=== PATIENT | female | born 2000 | race Caucasian/White ===

== ENCOUNTER 2021-09-09 11:09 | Emergency (ER) | payer MEDICAID ==
--- NOTE | 2021-09-09 12:48 | XRAY ---
Indication: Left lower quadrant pain. 13 weeks gestation. Two-dimensional transabdominal early OB ultrasound performed. Comparison: None Single viable intrauterine . Mean crown-rump length measures 6.55 cm corresponding to 12 weeks 6 days. heart rate 152 BPM. No abnormal retroplacental fluid. Cervical length is 2.6 cm. Left ovary unremarkable. Right ovary not visualized. No suspicious adnexal mass or free fluid. Impression: Single viable intrauterine measuring 12 weeks 6 days. Expected date confinement March 18, 2022. Nothing acute.
--- NOTE | 2021-09-09 12:54 | ERPHSYRPT ---
- History of Present Illness Time Seen by Provider: 09/09/21 12:10 Source: patient Exam Limitations: no limitations Physician History: Patient is a 20-year-old 1 para 0 who presents with some left lower quadrant and left pelvic pain. She is currently 36 weeks gestation with an estimated date of confinement of 03/19/2022. She is scheduled to see Dr. Martinez he who requested she come to the ER today for evaluation. She has had cramping and she has had nausea and vomiting. She has had no vaginal bleeding. She does have a history of a cyst in the left ovary. Which was observed Severity: mild Modifying Factors: Improves With: movement Associated Symptoms: nausea, vomiting, abdominal pain Allergies/Adverse Reactions: latex Allergy (Verified 09/09/21 12:54) Home Medications: Pnv No.95/Ferrous Fum/Folic AC [ Caplet] 1 each PO DAILY 09/09/21 [History] - Review of Systems Constitutional: No Fever, No Chills Eyes: No Symptoms Ears, Nose, & Throat: No Symptoms Respiratory: No Cough, No Dyspnea Cardiac: No Chest Pain, No Edema, No Syncope Abdominal/Gastrointestinal: Abdominal Pain, No Nausea, No Vomiting, No Diarrhea Genitourinary Symptoms: , No Dysuria Musculoskeletal: No Back Pain, No Neck Pain Skin: No Rash Neurological: No Dizziness, No Focal Weakness, No Sensory Changes Psychological: No Symptoms Endocrine: No Symptoms All Other Systems: Reviewed and Negative - Female History Hx Now: Yes - Nursing Vital Signs Nursing Vital Signs: Initial Vital Signs Pulse Rate 80 09/09/21 12:10 Respiratory Rate 20 09/09/21 12:10 Blood Pressure 121/81 09/09/21 12:10 O2 Sat by Pulse Oximetry 99 09/09/21 12:10 Pain Scale Pain Intensity 0 - Physical Exam General Appearance: no apparent distress, alert Eye Exam: PERRL/EOMI, eyes nml inspection Ears, Nose, Throat Exam: normal ENT inspection, TMs normal, pharynx normal, moist mucous membranes Neck Exam: normal inspection, non-tender, supple, full range of motion Respiratory Exam: normal breath sounds, lungs clear, No respiratory distress Cardiovascular Exam: regular rate/rhythm, normal heart sounds, normal peripheral pulses Gastrointestinal/Abdomen Exam: soft, normal bowel sounds, other ( heart tones are positive just above the symphysis), No tenderness, No mass Pelvic Exam: not done Rectal Exam: deferred Back Exam: normal inspection, normal range of motion, No CVA tenderness, No vertebral tenderness Extremity Exam: normal inspection, normal range of motion, pelvis stable Neurologic Exam: alert, oriented x 3, cooperative, normal mood/affect, nml cerebellar function, nml station & gait, sensation nml, No motor deficits Skin Exam: normal color, warm, dry, No rash Lymphatic Exam: No adenopathy SpO2 Interpretation: normal SpO2: 99 O2 Delivery: Room Air - Course Nursing assessment & vital signs reviewed: Yes - Radiology Ultrasound Exam OB Ultrasound: Other (Intrauterine at 12 weeks 6 days no cyst noted no masses and no fluid in the pelvis) Ordered Tests: Active Orders 24 hr Category Date Time Status OB <14 WKS 1ST GESTATION [US] Stat Exams 09/09/21 12:36 Completed AMYLASE Stat Lab 09/09/21 13:10 Completed CBC W DIFF Stat Lab 09/09/21 13:10 Completed CMP Stat Lab 09/09/21 13:10 Completed LIPASE Stat Lab 09/09/21 13:10 Completed UA W/RFX CULTURE Stat Lab 09/09/21 12:57 Completed Lab/Rad Data: Laboratory Result Diagrams 09/09/21 13:10 09/09/21 13:10 Laboratory Results 09/09/21 09/09/21 09/09/21 Range/Units 13:10 13:10 12:57 WBC 8.7 (4.0-10.5) x10^3/uL RBC 4.31 (4.1-5.4) x10^6/uL Hgb 13.7 (12.0-16.0) g/dL Hct 38.2 (35-47) % MCV 88.6 (78-100) fL MCH 31.8 (26-32) pg MCHC 35.9 (32-36) g/dL RDW 11.4 L (11.5-14.0) % Plt Count 247 (150-450) x10^3/uL MPV 9.5 (7.5-11.0) fL Gran % 61.9 (36.0-66.0) % Immature Gran % (Auto) 0.5 H (0.00-0.4) % Nucleat RBC Rel Count 0.0 (0.00-0.1) % Eos # (Auto) 0.08 (0-0.5) x10^3/uL Immature Gran # (Auto) 0.04 H (0.00-0.03) x10^3u/L Absolute Lymphs (auto) 2.43 (1.0-4.6) x10^3/uL Absolute Monos (auto) 0.73 (0.0-1.3) x10^3/uL Absolute Nucleated RBC 0.00 (0.00-0.01) x10^3u/L Lymphocytes % 28.1 (24.0-44.0) % Monocytes % 8.4 (0.0-12.0) % Eosinophils % 0.9 (0.00-5.0) % Basophils % 0.2 (0.0-0.4) % Absolute Granulocytes 5.35 (1.4-6.9) x10^3/uL Basophils # 0.02 (0-0.4) x10^3/uL Sodium 134 L (137-145) mmol/L Potassium 3.6 (3.5-5.1) mmol/L Chloride 106 (98-107) mmol/L Carbon Dioxide 20 L (22-30) mmol/L Anion Gap 12.1 (5-15) MEQ/L BUN 6 L (7-17) mg/dL Creatinine 0.39 L (0.52-1.04) mg/dL Estimated GFR > 60.0 ML/MIN Glucose 67 L (74-106) mg/dL Calcium 9.3 (8.4-10.2) mg/dL Total Bilirubin 0.40 (0.2-1.3) mg/dL AST 22 (14-36) U/L ALT 14 (0-35) U/L Alkaline Phosphatase 56 (38-126) U/L Serum Total Protein 7.3 (6.3-8.2) g/dL Albumin 4.1 (3.5-5.0) g/dL Amylase 92 (30-110) U/L Lipase 71 (23-300) U/L Urinalys Dipstick Clnc MAIN LAB Urine Color YELLOW (YELLOW) Urine Appearance SLIGHTLY CLOUDY (CLEAR) Urine pH 8.5 (5-6) Ur Specific Elbert 1.020 (1.005-1.025) POC Urine Protein Conf NEGATIVE (Negative) Urine Ketones NEGATIVE (NEGATIVE) Urine Nitrite NEGATIVE (NEGATIVE) Urine Bilirubin NEGATIVE (NEGATIVE) Urine Urobilinogen 0.2 (0-1) mg/dL Urine Leukocytes NEGATIVE (NEGATIVE) Urine WBC (Auto) 3-5 (0-5) /HPF Urine RBC (Auto) 0-2 (0-2) /HPF U Epithel Cells (Auto) RARE (FEW) /HPF Urine Bacteria (Auto) FEW (NEGATIVE) /HPF Urine RBC NEGATIVE (0-5) [place]/ul Urine Mucus (Auto) SLIGHT (NEGATIVE) /HPF Ur Culture Indicated? NO Urine Glucose NEGATIVE (NEGATIVE) mg/dL - Progress Progress: unchanged - Departure Departure Disposition: Home Clinical Impression: Hyperemesis of Condition: Stable Critical Care Time: No Referrals: DOCTOR,NO FAMILY [Primary Care Provider] - Follow up/PCP as directed Instructions: Morning Sickness (DC) Prescriptions: Ondansetron ODT 4 MG [Zofran Odt 4 mg] 4 mg PO Q6H PRN PRN #10 tablet PRN Reason: Vomiting
[2021-09-09 13:08] VITALS: BP 120/80; PULSE 76
[2021-09-09 13:15] LABS: Absolute Neutrophil Ct (ANC) 5.35 x10^3/uL (1.4-6.9); Basophil (Absolute #) 0.02 x10^3/uL (0-0.4); Eosinophil % 0.9 % (0.00-5.0); Eosinophil (Absolute #) 0.08 x10^3/uL (0-0.5); Hematocrit 38.2 % (35-47); Hemoglobin 13.7 g/dL (12.0-16.0); Lymphocyte (Absolute #) 2.43 x10^3/uL (1.0-4.6); Lymphocytes % 28.1 % (24.0-44.0); Mean Cell Volume 88.6 fL (78-100); Mean Corpuscular Hemoglobin 31.8 pg (26-32); Mean Corpuscular Hgb Concent. 35.9 g/dL (32-36); Mean Platelet Volume 9.5 fL (7.5-11.0); Monocyte (Absolute #) 0.73 x10^3/uL (0.0-1.3); Monocytes % 8.4 % (0.0-12.0); Neutrophil % 61.9 % (36.0-66.0); Platelet Count 247 x10^3/uL (150-450); Red Blood Count 4.31 x10^6/uL (4.1-5.4); Red Cell Distribution Width 11.4 % (11.5-14.0); White Blood Count 8.7 x10^3/uL (4.0-10.5)
[2021-09-09 13:27] LABS: ALBUMIN 4.1 g/dL (3.5-5.0); ALKALINE PHOSPHATASE 56 U/L (38-126); AMYLASE 92 U/L (30-110); ANION GAP 12.1 MEQ/L (5-15); BLOOD UREA NITROGEN 6 mg/dL (7-17); CHLORIDE 106 mmol/L (98-107); Calcium 9.3 mg/dL (8.4-10.2); Carbon Dioxide 20 mmol/L (22-30); Creatinine 1 0.39 mg/dL (0.52-1.04); EST GLOMERULAR FILTRATION RATE > 60.0 ML/MIN; Glucose 67 mg/dL (74-106); LIPASE 71 U/L (23-300); Potassium 3.6 mmol/L (3.5-5.1); SGOT/AST 22 U/L (14-36); SGPT/ALT 14 U/L (0-35); SODIUM 134 mmol/L (137-145); Total Protein 7.3 g/dL (6.3-8.2)
[2021-09-09 13:28] LABS: Appearance SLIGHTLY CLOUDY (CLEAR); Bilirubin NEGATIVE (NEGATIVE); Glucose NEGATIVE (NEGATIVE); Ketones NEGATIVE (NEGATIVE)
[2021-09-09 13:29] LABS: Dipstick done @ ? MAIN LAB; Nitrite NEGATIVE (NEGATIVE); Ph 8.5 (5-6); Protein,Urine Dip NEGATIVE (Negative); RBC NEGATIVE Ery/ul (0-5); Urobilinogen 0.2 mg/dL (0-1)
[2021-09-09 13:30] LABS: Bacteria FEW /HPF (NEGATIVE); Epithelial Cells RARE /HPF (FEW); Mucus SLIGHT /HPF (NEGATIVE); RBC 0-2 /HPF (0-2); Urine Cultured Indicated? NO
[2021-09-09 13:36] VITALS: O2SAT 99
== END 2021-09-09 13:56 | disposition home or self-care (01) ==
LOC: ED 11:09
DX: O21.0 Mild hyperemesis gravidarum (principal); Z3A.36 36 weeks gestation of pregnancy; R10.32 Left lower quadrant pain; R10.2 Pelvic and perineal pain
CPT/HCPCS: 36000; 36415; 76801; 80053; 81015; 82150; 83690; 85025; 99283

== ENCOUNTER 2021-10-26 10:27 | Emergency (ER) | payer OTHER ==
[2021-10-26 10:46] VITALS: O2SAT 99
[2021-10-26] MEDS ORDERED: Sodium Chloride 0.9% 1000 ML 1,000 ML IV STA (10:48)
[2021-10-26 11:05] LABS: Absolute Neutrophil Ct (ANC) 6.75 x10^3/uL (1.4-6.9); Basophil (Absolute #) 0.03 x10^3/uL (0-0.4); Eosinophil % 1.1 % (0.00-5.0); Eosinophil (Absolute #) 0.11 x10^3/uL (0-0.5); Hematocrit 37.6 % (35-47); Hemoglobin 12.2 g/dL (12.0-16.0); Lymphocyte (Absolute #) 2.35 x10^3/uL (1.0-4.6); Lymphocytes % 23.4 % (24.0-44.0); Mean Cell Volume 98.9 fL (78-100); Mean Corpuscular Hemoglobin 32.1 pg (26-32); Mean Corpuscular Hgb Concent. 32.4 g/dL (32-36); Mean Platelet Volume 10.5 fL (7.5-11.0); Monocyte (Absolute #) 0.72 x10^3/uL (0.0-1.3); Monocytes % 7.2 % (0.0-12.0); Neutrophil % 67.1 % (36.0-66.0); Platelet Count 210 x10^3/uL (150-450); Red Cell Distribution Width 12.5 % (11.5-14.0); White Blood Count 10.1 x10^3/uL (4.0-10.5)
[2021-10-26 11:22] LABS: Appearance CLEAR (CLEAR); Bilirubin NEGATIVE (NEGATIVE); Dipstick done @ ? MAIN LAB; Glucose NEGATIVE (NEGATIVE); Ketones NEGATIVE (NEGATIVE); Nitrite NEGATIVE (NEGATIVE); Protein,Urine Dip NEGATIVE (Negative); RBC NEGATIVE Ery/ul (0-5); Urobilinogen 0.2 mg/dL (0-1)
[2021-10-26] MEDS ORDERED: Sodium Chloride 0.9% 1000 ML 1,000 ML ONE (11:29)
[2021-10-26 11:45] LABS: ALBUMIN 3.9 g/dL (3.5-5.0); ALKALINE PHOSPHATASE 60 U/L (38-126); BLOOD UREA NITROGEN 9 mg/dL (7-17); CHLORIDE 106 mmol/L (98-107); Calcium 8.9 mg/dL (8.4-10.2); Carbon Dioxide 20 mmol/L (22-30); Creatinine 1 0.41 mg/dL (0.52-1.04); EST GLOMERULAR FILTRATION RATE > 60.0 ML/MIN; Glucose 78 mg/dL (74-106); Potassium 4.4 mmol/L (3.5-5.1); SGOT/AST 23 U/L (14-36); SGPT/ALT 15 U/L (0-35); SODIUM 134 mmol/L (137-145); Total Protein 6.9 g/dL (6.3-8.2)
[2021-10-26 12:04] LABS: Bacteria MANY /HPF (NEGATIVE); Epithelial Cells RARE /HPF (FEW); Mucus SLIGHT /HPF (NEGATIVE)
[2021-10-26 12:05] VITALS: BP 121/67
--- NOTE | 2021-10-26 12:20 | ERPHSYRPT ---
- History of Present Illness Time Seen by Provider: 10/26/21 10:32 Source: patient Exam Limitations: no limitations Patient Subjective Stated Complaint: Pt c/o of upper abdominal pain and is 19.3 weeks and hasn't felt it move since yesterday morning Triage Nursing Assessment: Pt brought to the ER by her mother, vitals wnl, rates upper abdominal pain as 6/10, FHT 127, denies bleeding, last bowel movement this morning which she states was normal for her, last intake this morning, denies sexual intercourse last night or this AM, doesn't appear to be in any distress Physician History: 21-year-old 1 para 0 at 19 weeks gestation presented in the ER with chief complaint of left-sided abdominal pain since this morning and also decreased movement since yesterday. Patient reports having sudden onset sharp pain on the left side while she was at work, moderate intensity without associated nausea or vomiting. Denies any vaginal bleeding or discharge. Patient is not feeling as much movements as she used to. Denies any recent sexual activity. Denies any urinary symptoms. Timing/Duration: today, constant, sudden Activites at Onset: physical activity Quality: sharpness Onset Location: other (Left upper quadrant/left lower quadrant) Severity of Pain-Max: moderate Severity of Pain-Current: mild Sexual intercourse history: non-contributory Modifying Factors: Improves With: nothing Associated Symptoms: denies symptoms Allergies/Adverse Reactions: bee venom protein (honey bee) Allergy (Verified 10/26/21 10:46) latex Allergy (Verified 10/26/21 10:46) Home Medications: Pnv No.95/Ferrous Fum/Folic AC [ Caplet] 1 each PO DAILY 09/09/21 [History] Hx Influenza Vaccination/Date Given: No Travel Risk - International Travel Have you traveled outside of the country in past 3 weeks: No - Coronavirus Screening Are you exhibiting any of the following symptoms?: No - Vaccine Status Have you recieved a Covid-19 vaccination: No - Review of Systems Constitutional: No Symptoms Eyes: No Symptoms Ears, Nose, & Throat: No Symptoms Respiratory: No Symptoms Cardiac: No Symptoms Abdominal/Gastrointestinal: Abdominal Pain Genitourinary Symptoms: No Symptoms Musculoskeletal: No Symptoms Neurological: No Symptoms Psychological: No Symptoms Endocrine: No Symptoms Hematologic/Lymphatic: No Symptoms Immunological/Allergic: No Symptoms - Past Medical History Pertinent Past Medical History: No - Past Surgical History Past Surgical History: Yes - Social History Smoking Status: Former smoker Exposure to second hand smoke: No Drug Use: none Patient Lives Alone: No - Female History Hx Now: Yes Expected Date of Delivery: 03/19/22 - Nursing Vital Signs Nursing Vital Signs: Initial Vital Signs Temperature 98.1 F 10/26/21 10:31 Pulse Rate 90 10/26/21 10:31 Blood Pressure 112/74 10/26/21 10:31 O2 Sat by Pulse Oximetry 99 10/26/21 10:31 Pain Scale Pain Intensity 5 - Physical Exam General Appearance: no apparent distress, alert Eye Exam: PERRL/EOMI Ears, Nose, Throat Exam: normal ENT inspection Neck Exam: normal inspection, supple, full range of motion Respiratory Exam: normal breath sounds, lungs clear Cardiovascular Exam: regular rate/rhythm, normal heart sounds Gastrointestinal/Abdomen Exam: soft, normal bowel sounds, tenderness (Mild left upper quadrant/flank and lower quadrant) Back Exam: normal inspection, normal range of motion, No CVA tenderness Extremity Exam: normal inspection, normal range of motion Neurologic Exam: alert, oriented x 3, cooperative, normal mood/affect Skin Exam: normal color SpO2 Interpretation: normal SpO2: 99 O2 Delivery: Room Air Ordered Tests: Active Orders 24 hr Category Date Time Status IV Insertion STAT Care 10/26/21 12:05 Completed OB FOLLOW UP PER FETUS [US] Stat Exams 10/26/21 10:52 Taken CBC W DIFF Stat Lab 10/26/21 11:01 Completed CMP Stat Lab 10/26/21 11:01 Results CULTURE,URINE Stat Lab 10/26/21 Received LIPASE Stat Lab 10/26/21 11:33 Ordered UA W/RFX CULTURE Stat Lab 10/26/21 Completed Medication Summary Discontinued Medications Generic Name Dose Route Start Last Admin Trade Name Freq PRN Reason Stop Dose Admin Cephalexin HCl 500 mg 10/26/21 12:27 10/26/21 12:39 Cephalexin Mh500 Mg Capsule PO 10/26/21 12:28 500 mg STAT ONE Administration Cephalexin HCl Confirm 10/26/21 12:38 Cephalexin Mh500 Mg Capsule Administered 10/26/21 12:39 Dose 500 mg .ROUTE .STK-MED ONE Sodium Chloride 1,000 mls @ 999 mls/hr 10/26/21 10:48 10/26/21 12:40 Sodium Chloride 0.9% 1000 Ml IV 10/26/21 11:48 Infused .Q1H1M STA Infusion Sodium Chloride Confirm 10/26/21 11:29 Sodium Chloride 0.9% 1000 Ml Administered 10/26/21 11:30 Dose 1,000 mls @ .ROUTE .[facility] ONE Lab/Rad Data: Laboratory Result Diagrams 10/26/21 11:01 10/26/21 11:01 Laboratory Results 10/26/21 10/26/21 10/26/21 Range/Units Unknown 11:01 11:01 WBC 10.1 (4.0-10.5) x10^3/uL RBC 3.80 L (4.1-5.4) x10^6/uL Hgb 12.2 (12.0-16.0) g/dL Hct 37.6 (35-47) % MCV 98.9 (78-100) fL MCH 32.1 H (26-32) pg MCHC 32.4 (32-36) g/dL RDW 12.5 (11.5-14.0) % Plt Count 210 (150-450) x10^3/uL MPV 10.5 (7.5-11.0) fL Gran % 67.1 H (36.0-66.0) % Immature Gran % (Auto) 0.9 H (0.00-0.4) % Nucleat RBC Rel Count 0.0 (0.00-0.1) % Eos # (Auto) 0.11 (0-0.5) x10^3/uL Immature Gran # (Auto) 0.09 H (0.00-0.03) x10^3u/L Absolute Lymphs (auto) 2.35 (1.0-4.6) x10^3/uL Absolute Monos (auto) 0.72 (0.0-1.3) x10^3/uL Absolute Nucleated RBC 0.00 (0.00-0.01) x10^3u/L Lymphocytes % 23.4 L (24.0-44.0) % Monocytes % 7.2 (0.0-12.0) % Eosinophils % 1.1 (0.00-5.0) % Basophils % 0.3 (0.0-0.4) % Absolute Granulocytes 6.75 (1.4-6.9) x10^3/uL Basophils # 0.03 (0-0.4) x10^3/uL Sodium 134 L (137-145) mmol/L Potassium 4.4 (3.5-5.1) mmol/L Chloride 106 (98-107) mmol/L Carbon Dioxide 20 L (22-30) mmol/L Anion Gap Pending BUN 9 (7-17) mg/dL Creatinine 0.41 L (0.52-1.04) mg/dL Estimated GFR > 60.0 ML/MIN Glucose 78 (74-106) mg/dL Calcium 8.9 (8.4-10.2) mg/dL Total Bilirubin 0.40 (0.2-1.3) mg/dL AST 23 (14-36) U/L ALT 15 (0-35) U/L Alkaline Phosphatase 60 (38-126) U/L Serum Total Protein 6.9 (6.3-8.2) g/dL Albumin 3.9 (3.5-5.0) g/dL Urinalys Dipstick Clnc MAIN LAB Urine Color YELLOW (YELLOW) Urine Appearance CLEAR (CLEAR) Urine pH 7.0 (5-6) Ur Specific [place]ort 1.020 (1.005-1.025) POC Urine Protein Conf NEGATIVE (Negative) Urine Ketones NEGATIVE (NEGATIVE) Urine Nitrite NEGATIVE (NEGATIVE) Urine Bilirubin NEGATIVE (NEGATIVE) Urine Urobilinogen 0.2 (0-1) mg/dL Urine Leukocytes NEGATIVE (NEGATIVE) Urine WBC (Auto) 3-5 (0-5) /HPF Urine RBC (Auto) NONE (0-2) /HPF U Epithel Cells (Auto) RARE (FEW) /HPF Urine Bacteria (Auto) MANY (NEGATIVE) /HPF Urine RBC NEGATIVE (0-5) [place]/ul Urine Mucus (Auto) SLIGHT (NEGATIVE) /HPF Ur Culture Indicated? YES Urine Glucose NEGATIVE (NEGATIVE) mg/dL - Progress Progress: improved Air Movement: good Progress Note: 10/26/21 12:22 She is given fluid bolus. Offered pain medication which she declined. Lab work grossly unremarkable except for some element of UTI and started on Keflex. Obtained OB ultrasound with preliminary report cervix 3.5 cm, heart tone 140s, no acute abnormality noticed. Patient is feeling better on reevaluation. She is advised to take Tylenol as needed. I have discussed lab work and ultrasound findings with Dr. Perez and did not recommend any further work-up and can be discharged with routine follow-up as scheduled. 10/26/21 12:28 Blood Culture(s) Obtained: No Antibiotics given: No Discussed with : Brandin Counseled pt/family regarding: lab results, diagnosis, need for follow-up, rad results - Departure Departure Disposition: Home Clinical Impression: Abdominal pain affecting , UTI in Condition: Stable Critical Care Time: No Referrals: BRENT PEREZ DO [ACTIVE STAFF] - Follow up/PCP as directed (As scheduled) Instructions: Round Ligament Pain, Stomach Pain in Early , Urinary Tract Infections in Additional Instructions: Take Tylenol as needed. Follow-up with your primary OB for reevaluation as scheduled. Keep yourself well-hydrated. Return to ER for worsening abdominal pain, decreased movements, vaginal bleeding discharge etc. Prescriptions: Cephalexin Mh 500 mg [Keflex 500 mg] 500 mg PO TID #21 cap
[2021-10-26 12:24] LABS: Urine Cultured Indicated? YES
[2021-10-26] MEDS ORDERED: KEFLEX 500 MG PO ONE (12:27)
[2021-10-26] MEDS ORDERED: KEFLEX 500 MG ONE (12:38)
[2021-10-26 12:42] VITALS: PULSE 82
[2021-10-26 13:35] LABS: ANION GAP 12.4 MEQ/L (5-15)
--- NOTE | 2021-10-26 18:23 | XRAY ---
Indication: Pain. Two-dimensional OB ultrasound performed. Comparison: September 09, 2021 Again single intrauterine currently in breech presentation. heart rate 141 BPM. Visualized stomach and bladder are unremarkable. Posterior placenta with inferior placenta approximately 2.5 cm from cervical os. No abnormal retroplacental fluid. Mean composite gestational age is 19 weeks 6 days. WENCESLAO is 12.5 cm. Impression: Again single viable intrauterine measuring 19 weeks 6 days. Normal progression of . Low-lying placenta. Nothing acute. Comment: Preliminary report was given.
== END 2021-10-26 12:53 | disposition home or self-care (01) ==
LOC: ED 10:27
DX: O23.42 Unspecified infection of urinary tract in pregnancy, second trimester (principal); N39.0 Urinary tract infection, site not specified; Z3A.19 19 weeks gestation of pregnancy; O26.892 Other specified pregnancy related conditions, second trimester; R10.32 Left lower quadrant pain; R10.12 Left upper quadrant pain; Z28.310 Unvaccinated for COVID-19
CPT/HCPCS: 36000; 36415; 76816; 80053; 81015; 83690; 85025; 87086; 96360; 99284; A9270-GY

== ENCOUNTER 2022-02-24 17:16 | Observation (INO) | payer OTHER ==
[2022-02-24] MEDS ORDERED: Lactated Ringers 1,000 ML IV ONE ×3 (18:58→19:20)
[2022-02-24 19:31] LABS: Appearance CLEAR (CLEAR); Bilirubin NEGATIVE (NEGATIVE); Dipstick done @ ? MAIN LAB; Glucose NEGATIVE (NEGATIVE); Ketones NEGATIVE (NEGATIVE); Nitrite NEGATIVE (NEGATIVE); Protein,Urine Dip NEGATIVE (Negative); RBC NEGATIVE Ery/ul (0-5); Specific Gravity 1.015 (1.005-1.025); Urobilinogen 0.2 mg/dL (0-1)
[2022-02-24 19:36] LABS: Mucus SLIGHT /HPF (NEGATIVE)
[2022-02-24 19:39] LABS: Urine Cultured Indicated? NO
[2022-02-24 19:46] LABS: Amphetamine,Urine NEGATIVE (NEGATIVE); Barbiturate,Urine NEGATIVE (NEGATIVE); Benzodiazepine,Urine NEGATIVE (NEGATIVE); Cocaine,Urine NEGATIVE (NEGATIVE); Methadone,Urine NEGATIVE (NEGATIVE); Opiate,Urine NEGATIVE (NEGATIVE); PCP,Urine NEGATIVE (NEGATIVE); THC,Urine NEGATIVE (NEGATIVE)
[2022-02-24 21:25] VITALS: BP 125/75; PULSE 99; O2SAT 93
== END 2022-02-24 21:40 | disposition home or self-care (01) ==
LOC: OB 17:16
PROVIDERS: ADMIT Obstetrics & Gynecology; ATTEND Obstetrics & Gynecology
DX: Z34.03 Encounter for supervision of normal first pregnancy, third trimester (principal); Z3A.37 37 weeks gestation of pregnancy
CPT/HCPCS: 80307; 81015; G0378

== ENCOUNTER 2022-03-04 10:46 | Emergency (ER) | payer OTHER ==
[2022-03-04] MEDS ORDERED: Sodium Chloride 0.9% 1000 ML 1,000 ML IV STA (10:52)
[2022-03-04] MEDS ORDERED: Sodium Chloride 0.9% 1000 ML 1,000 ML ONE (11:14)
--- NOTE | 2022-03-04 11:32 | XRAY ---
Indication: Fever, cough, and chest pain. Comparison: None Portable chest demonstrates normal heart, lungs, and bony thorax.
[2022-03-04 11:33] LABS: Absolute Neutrophil Ct (ANC) 7.63 x10^3/uL (1.4-6.9); Basophil (Absolute #) 0.03 x10^3/uL (0-0.4); Eosinophil % 0.8 % (0.00-5.0); Eosinophil (Absolute #) 0.07 x10^3/uL (0-0.5); Hematocrit 37.8 % (35-47); Lymphocyte (Absolute #) 0.54 x10^3/uL (1.0-4.6); Lymphocytes % 5.8 % (24.0-44.0); Mean Corpuscular Hemoglobin 31.6 pg (26-32); Mean Corpuscular Hgb Concent. 34.4 g/dL (32-36); Mean Platelet Volume 10.3 fL (7.5-11.0); Monocyte (Absolute #) 0.78 x10^3/uL (0.0-1.3); Monocytes % 8.4 % (0.0-12.0); Neutrophil % 82.4 % (36.0-66.0); Platelet Count 205 x10^3/uL (150-450); Red Blood Count 4.11 x10^6/uL (4.1-5.4); Red Cell Distribution Width 12.1 % (11.5-14.0); White Blood Count 9.3 x10^3/uL (4.0-10.5)
[2022-03-04] MEDS ORDERED: DUONEB 0.5-3 MG/3 ml Neb IH ONE (11:41)
[2022-03-04 12:00] LABS: ALBUMIN 3.7 g/dL (3.5-5.0); ALKALINE PHOSPHATASE 161 U/L (38-126); ANION GAP 11.7 MEQ/L (5-15); BLOOD UREA NITROGEN 4 mg/dL (7-17); CHLORIDE 106 mmol/L (98-107); Calcium 8.7 mg/dL (8.4-10.2); Carbon Dioxide 19 mmol/L (22-30); Creatinine 1 0.35 mg/dL (0.52-1.04); EST GLOMERULAR FILTRATION RATE > 60.0 ML/MIN; Glucose 119 mg/dL (74-106); MAGNESIUM 1.5 mg/dL (1.6-2.3); NT PRO BNP 35.2 pg/mL (0-450); Potassium 3.9 mmol/L (3.5-5.1); SGOT/AST 28 U/L (14-36); SGPT/ALT 20 U/L (0-35); SODIUM 133 mmol/L (137-145); Total Protein 6.9 g/dL (6.3-8.2)
[2022-03-04 12:01] LABS: INFLUENZA A NEGATIVE (NEGATIVE); INFLUENZA B NEGATIVE (NEGATIVE); RESPIRATORY SYNCTIAL VIRUS NEGATIVE (Negative)
[2022-03-04 12:06] LABS: SARS-CoV-2 Xpert Express POSITIVE (NEGATIVE)
[2022-03-04 12:48] LABS: Appearance Clear (Clear); Bacteria Rare /HPF (None Seen); Bilirubin Negative (Negative); Blood Negative (Negative); Epithelial Cells Rare /HPF (None Seen); Glucose, Urine Negative (Negative); Hyaline Casts NONE SEEN /LPF (0-2); Ketones Negative (Negative); Leukocyte Esterase Trace (Negative); Nitrite Negative (Negative); Ph 7.5 (4.6-8.0); Protein,Urine Dip Negative (Negative); RBC 0-2 /HPF (0-5); Urobilinogen 0.2 mg/dL (0.2)
[2022-03-04 12:49] LABS: ADD URINE CULTURE? NO (NO)
[2022-03-04] MEDS ORDERED: DECADRON 10MG INJ. IV ONE (12:52)
[2022-03-04] MEDS ORDERED: DECADRON 10MG INJ. ONE (12:53)
[2022-03-04 13:06] LABS: Slide Review 1 YES
--- NOTE | 2022-03-04 13:26 | ERPHSYRPT ---
- History of Present Illness Time Seen by Provider: 03/04/22 10:52 Source: patient Exam Limitations: no limitations Patient Subjective Stated Complaint: Pt c/o of SOB, cough, and contractions, pt is 9 months and her boyfriend tested + for covid and she tested - ye sterday for covid, pt woke this morning SOB Triage Nursing Assessment: Pt brought self to the ER, tachycardic, hypertensive, rates contractional pain as 8/10, flushed, pulses normal, diarrhea this morning, contractions for the past 2 weeks, doesn't appear to be in any distress Physician History: 21-year-old 1 para 0 around 9 months gestation presented in the ER with chief complaint of cough congestion symptoms for the last couple of days and this morning she woke up with worsening cough and some shortness of breath. Patient reports coughing up clear mucus along with body aches fatigue and tiredness. Patient also reports having uterine/pelvic contractions going on for the last few weeks but no vaginal bleeding discharge or fluid leak. No fever or chills reported. [facility] tested positive for COVID-19. Her COVID-19 test was negative yesterday. Allergies/Adverse Reactions: bee venom protein (honey bee) Allergy (Verified 03/04/22 11:09) latex Allergy (Verified 03/04/22 11:09) Home Medications: Pnv No.95/Ferrous Fum/Folic AC [ Caplet] 1 each PO DAILY 09/09/21 [History] Hx Influenza Vaccination/Date Given: No Travel Risk - International Travel Have you traveled outside of the country in past 3 weeks: No - Coronavirus Screening Are you exhibiting any of the following symptoms?: Yes Symptoms: Cough: New Onset, Shortness of Breath, Vomiting/Diarrhea Close contact with a COVID-19 positive Pt in past 14-21 Days: Yes - Vaccine Status Have you recieved a Covid-19 vaccination: No - Review of Systems Constitutional: Fatigue, Weakness Eyes: No Symptoms Ears, Nose, & Throat: Throat Pain Respiratory: Cough Cardiac: No Symptoms Abdominal/Gastrointestinal: Abdominal Pain Genitourinary Symptoms: Musculoskeletal: No Symptoms Skin: No Symptoms Neurological: No Symptoms Psychological: No Symptoms Endocrine: No Symptoms Hematologic/Lymphatic: No Symptoms - Past Medical History Pertinent Past Medical History: No - Past Surgical History Past Surgical History: Yes - Social History Smoking Status: Former smoker Exposure to second hand smoke: Yes Drug Use: none Patient Lives Alone: No - Female History Hx Now: Yes Gestational Age: 9 months - Nursing Vital Signs Nursing Vital Signs: Initial Vital Signs Pulse Rate 152 H 03/04/22 10:49 Respiratory Rate 18 03/04/22 10:49 Blood Pressure 146/97 03/04/22 10:49 O2 Sat by Pulse Oximetry 100 03/04/22 10:49 Pain Scale Pain Intensity 2 - Physical Exam General Appearance: no apparent distress, alert, anxiety Eye Exam: PERRL/EOMI, eyes nml inspection Ears, Nose, Throat Exam: normal ENT inspection, TMs normal, pharynx normal, moist mucous membranes Neck Exam: normal inspection, non-tender, supple, full range of motion Respiratory Exam: normal breath sounds, lungs clear, No accessory muscle use, No wheezing Cardiovascular Exam: normal heart sounds, tachycardia Gastrointestinal/Abdomen Exam: soft, normal bowel sounds, other (Gravid uterus) Back Exam: normal inspection, normal range of motion Extremity Exam: normal inspection, normal range of motion Neurologic Exam: alert, oriented x 3, cooperative Skin Exam: normal color SpO2 Interpretation: normal SpO2: 100 O2 Delivery: Room Air - Course EKG Interpreted by Me: RATE, Sinus Tach, NORMAL AXIS, NORMAL INTERVALS, NORMAL QRS Ordered Tests: Active Orders 24 hr Category Date Time Status Broadcast Supervisor STAT Care 03/04/22 10:53 Active EKG-ER Only STAT Care 03/04/22 10:52 Active IV Insertion STAT Care 03/04/22 10:52 Active CHEST 1 VIEW (PORTABLE) Stat Exams 03/04/22 10:53 Completed BLOOD CULTURE Stat Lab 03/04/22 11:18 Received CBC W DIFF Stat Lab 03/04/22 11:11 Completed CMP Stat Lab 03/04/22 11:11 Completed Lactic Acid Stat Lab 03/04/22 10:52 Completed MAGNESIUM Stat Lab 03/04/22 11:11 Completed NT PRO BNP Stat Lab 03/04/22 11:11 Completed TROPONIN Q4H Lab 03/04/22 11:11 Completed UA W/RFX UR CULTURE Stat Lab 03/04/22 12:34 Completed Medication Summary Discontinued Medications Generic Name Dose Route Start Last Admin Trade Name Freq PRN Reason Stop Dose Admin Albuterol/Ipratropium 3 ml 03/04/22 11:41 03/04/22 11:47 Ipratropium/Albuterol Sulfate 3 Ml Ampul.Neb IH 03/04/22 11:42 Not Given STAT ONE Dexamethasone Sodium Phosphate 6 mg 03/04/22 12:52 03/04/22 12:54 Dexamethasone Sod Phosphate 10 Mg/Ml IV 03/04/22 12:53 6 mg STAT ONE Administration Dexamethasone Sodium Phosphate Confirm 03/04/22 12:53 Dexamethasone Sod Phosphate 10 Mg/Ml Administered 03/04/22 12:54 Dose 10 mg .ROUTE .STK-MED ONE Sodium Chloride 1,000 mls @ 999 mls/hr 03/04/22 10:52 03/04/22 12:25 Sodium Chloride 0.9% 1000 Ml IV 03/04/22 11:52 Infused .Q1H1M STA Infusion Sodium Chloride Confirm 03/04/22 11:14 Sodium Chloride 0.9% 1000 Ml Administered 03/04/22 11:15 Dose 1,000 mls @ ud .ROUTE .STK-MED ONE Magnesium Sulfate/Dextrose 100 mls @ 200 mls/hr 03/04/22 13:30 03/04/22 13:54 Magnesium 1 Gm / 100 Ml D5w IV 03/04/22 13:59 200 mls/hr STAT ONE Administration Magnesium Sulfate/Dextrose Confirm 03/04/22 13:54 Magnesium 1 Gm / 100 Ml D5w Administered 03/04/22 13:55 Dose 100 mls @ ud IV .STK-MED ONE Lab/Rad Data: Laboratory Result Diagrams 03/04/22 11:11 03/04/22 11:11 Laboratory Results 03/04/22 03/04/22 03/04/22 Range/Units 12:34 11:19 11:11 WBC (4.0-10.5) x10^3/uL RBC (4.1-5.4) x10^6/uL Hgb (12.0-16.0) g/dL Hct (35-47) % MCV (78-100) fL MCH (26-32) pg MCHC (32-36) g/dL RDW (11.5-14.0) % Plt Count (150-450) x10^3/uL MPV (7.5-11.0) fL Gran % (36.0-66.0) % Immature Gran % (Auto) (0.00-0.4) % Nucleat RBC Rel Count (0.00-0.1) % Eos # (Auto) (0-0.5) x10^3/uL Immature Gran # (Auto) (0.00-0.03) x10^3u/L Absolute Lymphs (auto) (1.0-4.6) x10^3/uL Absolute Monos (auto) (0.0-1.3) x10^3/uL Absolute Nucleated RBC (0.00-0.01) x10^3u/L Lymphocytes % (24.0-44.0) % Monocytes % (0.0-12.0) % Eosinophils % (0.00-5.0) % Basophils % (0.0-0.4) % Absolute Granulocytes (1.4-6.9) x10^3/uL Basophils # (0-0.4) x10^3/uL Sodium (137-145) mmol/L Potassium (3.5-5.1) mmol/L Chloride (98-107) mmol/L Carbon Dioxide (22-30) mmol/L Anion Gap (5-15) MEQ/L BUN (7-17) mg/dL Creatinine (0.52-1.04) mg/dL Estimated GFR ML/MIN Glucose (74-106) mg/dL Lactic Acid (0.4-2.0) Calcium (8.4-10.2) mg/dL Magnesium (1.6-2.3) mg/dL Total Bilirubin (0.2-1.3) mg/dL AST (14-36) U/L ALT (0-35) U/L Alkaline Phosphatase (38-126) U/L Troponin I < 0.012 (0.000-0.034) ng/mL NT-Pro-B Natriuret Pep (0-450) pg/mL Serum Total Protein (6.3-8.2) g/dL Albumin (3.5-5.0) g/dL Urine Color Yellow (Yellow) Urine Appearance Clear (Clear) Urine pH 7.5 (4.6-8.0) Ur Specific [place] 1.010 (1.005-1.030) Urine Protein Negative (Negative) Urine Glucose (UA) Negative (Negative) mg/dL Urine Ketones Negative (Negative) Urine Blood Negative (Negative) Urine Nitrite Negative (Negative) Urine Bilirubin Negative (Negative) Urine Urobilinogen 0.2 (0.2) mg/dL Ur Leukocyte Esterase Trace A (Negative) U Hyaline Cast (Auto) NONE SEEN (0-2) /LPF Urine Microscopic RBC 0-2 (0-5) /HPF Urine Microscopic WBC 3-5 (0-5) /HPF Ur Epithelial Cells Rare (None Seen) /HPF Urine Bacteria Rare A (None Seen) /HPF Urine Culture Reflexed NO (NO) Influenza Type A Ag NEGATIVE (NEGATIVE) Influenza Type B Ag NEGATIVE (NEGATIVE) RSV (PCR) NEGATIVE (Negative) SARS-CoV-2 (PCR) POSITIVE A (NEGATIVE) Slides for Path Review 03/04/22 03/04/22 03/04/22 Range/Units 11:11 11:11 10:52 WBC 9.3 (4.0-10.5) x10^3/uL RBC 4.11 (4.1-5.4) x10^6/uL Hgb 13.0 (12.0-16.0) g/dL Hct 37.8 (35-47) % MCV 92.0 (78-100) fL MCH 31.6 (26-32) pg MCHC 34.4 (32-36) g/dL RDW 12.1 (11.5-14.0) % Plt Count 205 (150-450) x10^3/uL MPV 10.3 (7.5-11.0) fL Gran % 82.4 H (36.0-66.0) % Immature Gran % (Auto) 2.3 H (0.00-0.4) % Nucleat RBC Rel Count 0.0 (0.00-0.1) % Eos # (Auto) 0.07 (0-0.5) x10^3/uL Immature Gran # (Auto) 0.21 H (0.00-0.03) x10^3u/L Absolute Lymphs (auto) 0.54 L (1.0-4.6) x10^3/uL Absolute Monos (auto) 0.78 (0.0-1.3) x10^3/uL Absolute Nucleated RBC 0.00 (0.00-0.01) x10^3u/L Lymphocytes % 5.8 L (24.0-44.0) % Monocytes % 8.4 (0.0-12.0) % Eosinophils % 0.8 (0.00-5.0) % Basophils % 0.3 (0.0-0.4) % Absolute Granulocytes 7.63 H (1.4-6.9) x10^3/uL Basophils # 0.03 (0-0.4) x10^3/uL Sodium 133 L (137-145) mmol/L Potassium 3.9 (3.5-5.1) mmol/L Chloride 106 (98-107) mmol/L Carbon Dioxide 19 L (22-30) mmol/L Anion Gap 11.7 (5-15) MEQ/L BUN 4 L (7-17) mg/dL Creatinine 0.35 L (0.52-1.04) mg/dL Estimated GFR > 60.0 ML/MIN Glucose 119 H (74-106) mg/dL Lactic Acid 1.8 (0.4-2.0) Calcium 8.7 (8.4-10.2) mg/dL Magnesium 1.5 L (1.6-2.3) mg/dL Total Bilirubin 0.40 (0.2-1.3) mg/dL AST 28 (14-36) U/L ALT 20 (0-35) U/L Alkaline Phosphatase 161 H (38-126) U/L Troponin I (0.000-0.034) ng/mL NT-Pro-B Natriuret Pep 35.2 (0-450) pg/mL Serum Total Protein 6.9 (6.3-8.2) g/dL Albumin 3.7 (3.5-5.0) g/dL Urine Color (Yellow) Urine Appearance (Clear) Urine pH (4.6-8.0) Ur Specific [place] (1.005-1.030) Urine Protein (Negative) Urine Glucose (UA) (Negative) mg/dL Urine Ketones (Negative) Urine Blood (Negative) Urine Nitrite (Negative) Urine Bilirubin (Negative) Urine Urobilinogen (0.2) mg/dL Ur Leukocyte Esterase (Negative) U Hyaline Cast (Auto) (0-2) /LPF Urine Microscopic RBC (0-5) /HPF Urine Microscopic WBC (0-5) /HPF Ur Epithelial Cells (None Seen) /HPF Urine Bacteria (None Seen) /HPF Urine Culture Reflexed (NO) Influenza Type A Ag (NEGATIVE) Influenza Type B Ag (NEGATIVE) RSV (PCR) (Negative) SARS-CoV-2 (PCR) (NEGATIVE) Slides for Path Review YES - Progress Progress: improved, re-examined Air Movement: good Progress Note: 03/04/22 13:28 21-year-old 1 para 0 at almost 9 months gestation presented in the ER with chief complaint of cough congestion with some shortness of breath. Patient is having the symptoms for the last couple of days, boyfriend tested positive for COVID-19 few days ago. She had negative COVID test done yesterday. This morning she woke up with coughing up clear mucus with generalized body aches fatigue and tiredness. She is also complaining of some pelvic cramping which is going on for the last few days without any vaginal bleed discharge. Denies any urinary symptoms. She has a negative chest x-ray done, given fluid bolus and her heart rate improved in low 100s. EKG showed sinus tach with no ST elevation and negative initial troponin. Patient has normal white count, chemistries showed mild hypomagnesemia and given replacement. She is positive for COVID-19. She is given a dose of Decadron IV in here and will continue with Decadron to go home. Patient is scheduled for her NST. I have contacted OB and they have monitored patient in the ER for a little over hour with no definite of contract ions and patient is not in labor. I have discussed with OB Dr. Perez, reviewed history, work-up and patient is advised to keep appointment with NST and stable for discharge. For viral syndrome she is recommended supportive care. Discussed signs syndrome worsening needing return to ER which she seems understanding. Blood Culture(s) Obtained: No Antibiotics given: No Discussed with : Brandin Counseled pt/family regarding: lab results, diagnosis, need for follow-up, rad results - Departure Departure Disposition: Home Clinical Impression: COVID-19 virus detected, Acute bronchitis, viral, Hypomagnesemia Condition: Stable Critical Care Time: No Referrals: MAYUR SOUZA, INSURANCE VERIFICATION REPRESENTATIVE [Primary Care Provider] - Follow up/PCP as directed Instructions: Cough, Adult (DC), COVID-19 and (DC) Additional Instructions: Drink plenty of fluids to keep yourself well-hydrated. Use Mucinex/cough syrup as needed. Use inhaler as needed for if having difficulty breathing. Follow-up with your primary OB as scheduled. Return to ER for worsening cough, difficulty breathing, persistent high-grade fever, pelvic cramping/vaginal bleeding discharge etc. Prescriptions: Albuterol Sulfate [Albuterol Sulfate Hfa] 8.5 gm IH Q6H PRN 7 Days #1 inh PRN Reason: Cough dexAMETHasone [Dexamethasone] 6 mg PO DAILY 4 Days #4 tablet
[2022-03-04] MEDS ORDERED: Magnesium 1 Gm / 100 Ml D5W*** 100 ML IV ONE ×2 (13:30→13:54)
[2022-03-04 14:39] VITALS: BP 142/84; PULSE 72; O2SAT 97
== END 2022-03-04 14:38 | disposition home or self-care (01) ==
LOC: ED 10:46
DX: O98.513 Other viral diseases complicating pregnancy, third trimester (principal); U07.1 COVID-19; O99.513 Diseases of the respiratory system complicating pregnancy, third trimester; J20.8 Acute bronchitis due to other specified organisms; Z3A.00 Weeks of gestation of pregnancy not specified; E83.42 Hypomagnesemia; R05.1 Acute cough; R06.02 Shortness of breath; M79.10 Myalgia, unspecified site; R53.83 Other fatigue; Z79.52 Long term (current) use of systemic steroids; Z28.310 Unvaccinated for COVID-19
CPT/HCPCS: 0241U; 36000; 36415; 71045; 80053; 81001; 83605; 83735; 83880; 84484; 85025; 87040; 93005; 93041; 96360; 96365; 96374; 99284; J1100; J3475

== ENCOUNTER 2022-03-14 08:00 | Inpatient (IN) | payer OTHER ==
[~2022-03-14 08:00] MED LIST: STADOL 2 MG IV PRN
[2022-03-14] MEDS ORDERED: BRETHINE 1 MG/ML SQ PRN (17:00)
[2022-03-14] MEDS ORDERED: Zofran 4 MG/2 ML VIAL IV PRN (17:00)
[2022-03-14] MEDS ORDERED: CYTOTEC PO SCH (17:00)
[2022-03-14] MEDS: CYTOTEC PO SCH ×4 (17:33→23:30)
[2022-03-14 17:34] LABS: BASOPHIL % 0.3 % (0.0-0.4); Basophil (Absolute #) 0.03 x10^3/uL (0-0.4); Eosinophil % 0.7 % (0.00-5.0); Eosinophil (Absolute #) 0.08 x10^3/uL (0-0.5); Hematocrit 35.2 % (35-47); Hemoglobin 12.2 g/dL (12.0-16.0); IMMATURE GRAN # 0.21 x10^3u/L (0.00-0.03); IMMATURE GRAN % 1.8 % (0.00-0.4); Lymphocyte (Absolute #) 2.28 x10^3/uL (1.0-4.6); Lymphocytes % 19.3 % (24.0-44.0); Mean Corpuscular Hemoglobin 31.5 pg (26-32); Mean Corpuscular Hgb Concent. 34.7 g/dL (32-36); Mean Platelet Volume 9.6 fL (7.5-11.0); Monocytes % 5.9 % (0.0-12.0); Platelet Count 250 x10^3/uL (150-450); Red Blood Count 3.87 x10^6/uL (4.1-5.4); Red Cell Distribution Width 11.9 % (11.5-14.0); White Blood Count 11.8 x10^3/uL (4.0-10.5)
[2022-03-14 17:55] LABS: Amphetamine,Urine NEGATIVE (NEGATIVE); Barbiturate,Urine NEGATIVE (NEGATIVE); Benzodiazepine,Urine NEGATIVE (NEGATIVE); Cocaine,Urine NEGATIVE (NEGATIVE); Methadone,Urine NEGATIVE (NEGATIVE); Opiate,Urine NEGATIVE (NEGATIVE); PCP,Urine NEGATIVE (NEGATIVE); THC,Urine NEGATIVE (NEGATIVE)
[2022-03-14 19:03] LABS: ABO TYPING O; Antibody Screen NEGATIVE (NEGATIVE); RH TYPING POSITIVE
[2022-03-14] MEDS ORDERED: Ambien 10 MG PO PRN ×2 (22:00→22:02)
[2022-03-14] MEDS ORDERED: Lactated Ringers 1,000 ML IV ONE (22:56)
[2022-03-14] MEDS: Lactated Ringers 1,000 ML IV SCH (22:56)
[2022-03-15] MEDS: CYTOTEC PO SCH ×3 (01:30→05:30)
[2022-03-15] MEDS ORDERED: XYLOCAINE 1% HCL 20 ML MDV ONE (03:29)
[2022-03-15] MEDS ORDERED: FENTANYL 2 MCG-BUPIV 0.125%-NS 250 ML Epidur 250 ML EPIDURAL SCH (06:00)
[2022-03-15] MEDS ORDERED: Lactated Ringers 1,000 ML IV ONE (06:00)
[2022-03-15] MEDS ORDERED: Ephedrine Sulfate 50 MG/ML IV PRN (06:00)
[2022-03-15] MEDS: Lactated Ringers 1,000 ML IV SCH ×3 (06:02→15:17)
[2022-03-15] MEDS ORDERED: PITOCIN 30 UNITS/ LR 500 ML 30 UNITS/500 ML PLAST..BAG IV SCH ×2 (07:00→12:00)
[2022-03-15] MEDS ORDERED: XYLOCAINE 1% HCL 20 ML MDV IJ PRN (07:00)
[2022-03-15] MEDS: PITOCIN 30 UNITS/ LR 500 ML 30 UNITS/500 ML PLAST..BAG IV SCH ×2 (07:22→08:09)
[2022-03-15] MEDS ORDERED: Dermoplast Spray TP PRN (10:00)
[2022-03-15] MEDS ORDERED: CORTISONE 1% CREAM TP PRN (10:00)
[2022-03-15] MEDS ORDERED: LANSINOH 40 GM TOP PRN (10:00)
[2022-03-15] MEDS ORDERED: TUCKS TP PRN (10:00)
[2022-03-15] MEDS ORDERED: Pepcid 20 MG VIAL IV ONE (18:09)
[2022-03-15] MEDS ORDERED: SOD CITRATE-CITRIC ACID SOLN ONE (18:09)
[2022-03-15] MEDS ORDERED: Reglan 10 MG/2 ML ONE (18:09)
[2022-03-15] MEDS ORDERED: CEFAZOLIN 2 GM-D5W BAG** 2 GM/50 ML ML IV ONE (18:10)
[2022-03-15] MEDS ORDERED: XYLOCAINE 2%/Epi 1:200000 20ML VIAL MPF ONE (18:10)
[2022-03-15] MEDS ORDERED: SUBLIMAZE 100 MCG/2 ML ONE (18:11)
[2022-03-15] MEDS ORDERED: Pepcid 20 MG VIAL IV SCH (18:15)
[2022-03-15] MEDS ORDERED: Reglan 10 MG/2 ML IV SCH (18:15)
[2022-03-15] MEDS ORDERED: SOD CITRATE-CITRIC ACID SOLN PO SCH (18:15)
[2022-03-15] MEDS ORDERED: CEFAZOLIN 2 GM-D5W BAG** 2 GM/50 ML ML IV SCH (18:30)
[2022-03-15] MEDS ORDERED: Zithromax 500 MG/ 250 ML NaCl Premix 500 MG/250 ML IVPB IV ONE (18:55)
[2022-03-15] MEDS ORDERED: DEXMEDETOMIDINE 80 MCG/20ML-NS IV ONE (19:19)
[2022-03-15] MEDS ORDERED: TORAdol 30 mg Injection ONE (19:33)
[2022-03-15] MEDS ORDERED: Decadron 4 MG INJ ONE (19:33)
[2022-03-15] MEDS ORDERED: Zofran 4 MG/2 ML VIAL ONE (19:33)
[2022-03-15] MEDS ORDERED: Marcaine 0.5%/Epinephrine 10 ML ONE (19:34)
[2022-03-15] MEDS ORDERED: Pitocin 10 UNITS/ML ONE (19:34)
[2022-03-15] MEDS ORDERED: PHENYLEPHRINE HCL ONE (19:37)
[2022-03-15] MEDS ORDERED: Astramorph-Pf 5 MG/10 ML ONE (19:42)
[2022-03-16] MEDS: Docusate Sodium 100 MG PO SCH ×3 (00:47→22:27)
[2022-03-16] MEDS ORDERED: Nubain 10 MG/ML IV PRN (01:19)
[2022-03-16] MEDS ORDERED: HOLD NARCOTIC ANALGESICS AND SEDATIVES X24 HR MC PRN (01:19)
[2022-03-16] MEDS ORDERED: MORPHINE SULFATE 2 MG INJ IV PRN (01:19)
[2022-03-16] MEDS ORDERED: DEMEROL 50 MG IV PRN (01:19)
[2022-03-16] MEDS ORDERED: CLARITIN 10 MG PO PRN (01:19)
[2022-03-16] MEDS ORDERED: Narcan 0.4 MG/ML IV PRN (01:19)
[2022-03-16] MEDS ORDERED: BENADRYL 50 MG/ML IV PRN (01:19)
[2022-03-16] MEDS ORDERED: Dextrose 5%-Lr IV Solution 1000 ML 1,000 ML IV SCH (01:30)
[2022-03-16] MEDS ORDERED: KEFZOL 1 GM/50 ML PREMIX** 1 GM/50 ML IVPB IV ONE ×3 (03:27→06:52)
[2022-03-16] MEDS: PERCOCET TABLET 5/325MG PO PRN ×2 (04:51→11:41)
[2022-03-16 04:52] LABS: Absolute Neutrophil Ct (ANC) 20.16 x10^3/uL (1.4-6.9); BASOPHIL % 0.1 % (0.0-0.4); Basophil (Absolute #) 0.03 x10^3/uL (0-0.4); Eosinophil (Absolute #) 0 x10^3/uL (0-0.5); Hematocrit 33.8 % (35-47); Hemoglobin 11.9 g/dL (12.0-16.0); IMMATURE GRAN # 0.15 x10^3u/L (0.00-0.03); IMMATURE GRAN % 0.7 % (0.00-0.4); Lymphocyte (Absolute #) 0.94 x10^3/uL (1.0-4.6); Lymphocytes % 4.2 % (24.0-44.0); Mean Cell Volume 90.6 fL (78-100); Mean Corpuscular Hemoglobin 31.9 pg (26-32); Mean Corpuscular Hgb Concent. 35.2 g/dL (32-36); Monocyte (Absolute #) 1.07 x10^3/uL (0.0-1.3); Monocytes % 4.8 % (0.0-12.0); Neutrophil % 90.2 % (36.0-66.0); Platelet Count 227 x10^3/uL (150-450); Red Blood Count 3.73 x10^6/uL (4.1-5.4); Red Cell Distribution Width 11.8 % (11.5-14.0); White Blood Count 22.4 x10^3/uL (4.0-10.5)
[2022-03-16 05:13] LABS: Slide Review 1 YES
[2022-03-16] MEDS ORDERED: KEFZOL 1 GM/50 ML PREMIX** 1 GM/50 ML IVPB IV SCH (06:00)
[2022-03-16 09:12] LABS: HBsAg Screen Negative (Negative)
[2022-03-16] MEDS: FERREX 150 PO SCH (09:15)
[2022-03-16] MEDS: TYLENOL EXTRA STRENGTH 500 MG PO PRN ×2 (09:15→19:50)
--- NOTE | 2022-03-16 11:48 | OP ---
SURGERY DATE/TIME: 03/15/20221910 PREOPERATIVE DIAGNOSIS: Intrauterine at 39 weeks and 3 days gestation with arrest of descent and dilatation. POSTOPERATIVE DIAGNOSIS: Intrauterine at 39 weeks and 3 days gestation with arrest of descent and dilatation. PROCEDURE: Primary section, low flap transverse uterine incision, Pfannenstiel skin incision. SURGEON: Andrews Perez D.O. COOPER HELPER: Allison Thompson, surgical technicians. ANESTHESIA: Epidural. ESTIMATED BLOOD LOSS: 526 cc. COMPLICATIONS: None. INDICATIONS: The risks, benefits, indications and alternatives of the procedure were reviewed with the patient prior to procedure. The patient understood the risk of infection, bleeding, bowel injury, bladder injury, pelvic infection and thromboembolic disorder associated with this surgery and desires to have this surgery as a possible means to alleviate her current medical condition. DESCRIPTION OF PROCEDURE AND FINDINGS: At this point the patient is taken to the operating room where her epidural anesthesia was found to be adequate. She was then prepared and draped in normal sterile fashion in the dorsal supine position with leftward tilt. A Pfannenstiel skin incision is made with a scalpel and carried through to the underlying layer of the fascia with a Bovie. The fascia is then incised in the midline and the incision extended laterally with Quijano scissors. The superior aspect of the fascial incision was then grasped Khadijah clamps elevated and the underlying rectus muscles dissected off bluntly. Attention is then turned to the inferior aspect of this incision which in similar fashion was grasped, tented up with Khadijah clamps and the rectus muscles dissected off bluntly. The rectus muscles were then at the midline and the peritoneum identified, tented up and entered sharply with Metzenbaum scissors. The peritoneal incision was then extended superiorly and inferiorly with good visualization of the bladder. The bladder blade was then inserted and vesicouterine peritoneum identified, grasped with pickups and entered sharply with Metzenbaum scissors. This incision was then extended laterally and a bladder flap created digitally. The bladder blade was then re-inserted and the lower uterine segment incised in transverse fashion with a scalpel. The uterine incision was then extended laterally with bandage scissors. The bladder blade was then removed and the 's head was delivered atraumatically. The nose and mouth were suctioned with bulb suction and the cord clamped and cut. The was then handed off to the awaiting nurses. The placenta was then removed manually. The uterus exteriorized and cleared of all clots and debris. The uterine incision was repaired with 1-0 chromic in a running locked fashion. A second layer of the same suture was used to obtain excellent hemostasis. From this point, the uterus is then returned to the abdomen. The gutters were cleared of clots and the peritoneal muscles were closed in interrupted fashion using 2-0 chromic suture. The fascia was re-approximated with 0 Vicryl in a running fashion. The subcutaneous layer was closed with 3-0 Vicryl suture and the skin was closed with absorbable carlton called INSORB. The patient tolerated the procedure well. Sponge, lap, needle and instrument counts were correct x2. The patient was then taken to the recovery room in stable condition. The patient delivered a live baby girl at 1928 hours, 's were 9 at 1 minute and 9 at 5 minutes. The weight of the baby was 7 pounds 9 ounces.
--- NOTE | 2022-03-16 12:43 | PCM.NOTE ---
Date and Time: 03/16/22 1240 Subjective Assessment: pod 1 sp csection pod 1 pt resting in bed and doing well. vss afebrile abd; soft incision c/d/intact uterus; firm lochia; mild hgb; 11 a/p sp csection pod 1 anticipate discharge tomorrow OBJECTIVE DATA Vital Signs: Vital Signs - 24 hr Temp Pulse Resp BP BP Pulse Ox 03/16/22 03:43 99.3 F 81 20 121/77 99 03/16/22 00:30 97 03/16/22 00:00 99.2 F 84 18 138/85 97 03/15/22 23:21 97.8 F 84 18 125/73 98 03/15/22 23:00 97 03/15/22 22:45 97.8 F 100 H 18 109/66 97 03/15/22 22:00 97 03/15/22 21:45 98.6 F 93 H 20 116/66 97 03/15/22 21:00 97 03/15/22 20:45 98.6 F 101 H 18 117/72 98 03/15/22 19:00 98.5 F 03/15/22 18:30 98.5 F 77 18 116/76 97 03/15/22 18:15 98.5 F 114 H 18 142/98 97 03/15/22 18:00 98.5 F 75 18 124/84 97 03/15/22 17:45 98.5 F 78 18 124/79 98 03/15/22 17:30 98.5 F 77 18 116/76 97 03/15/22 17:15 98.5 F 77 18 116/76 97 03/15/22 17:00 98.5 F 83 18 114/79 114/79 97 03/15/22 16:45 98.5 F 82 18 125/82 100 03/15/22 16:30 98.5 F 83 18 121/85 100 03/15/22 16:15 98.5 F 77 18 120/75 100 03/15/22 16:00 98.5 F 77 18 125/78 100 03/15/22 15:45 98.5 F 80 18 126/94 100 03/15/22 15:30 98.5 F 75 18 126/83 100 03/15/22 15:15 98.5 F 84 18 119/80 100 03/15/22 15:00 98.5 F 83 18 129/84 100 03/15/22 14:45 98.5 F 71 18 130/89 100 03/15/22 14:30 98.5 F 68 18 118/77 100 03/15/22 14:15 98.5 F 69 18 108/62 100 03/15/22 14:00 98.5 F 75 18 113/74 100 03/15/22 13:45 98.4 F 76 18 124/79 100 03/15/22 13:30 98.4 F 71 18 122/76 100 03/15/22 13:15 98.4 F 68 18 114/72 100 03/15/22 13:00 98.4 F 66 18 116/76 116/76 100 03/15/22 12:45 98.4 F 70 18 120/58 100 Pain Assessment - Last Documented Pain Intensity [Anterior] 0 Pain Intensity 3 Pain Scale Used 0-10 Pain Scale Intake and Output: Intake & Output 03/14/22 03/15/22 03/16/22 03/17/22 11:59 11:59 11:59 11:59 Intake Total 6800 7395 Output Total 900 3530 Balance 5900 3865 Weight 82.1 kg 82.1 kg Lab Results: Lab Results-Last 24 Hours 03/14/22 03/16/22 Range/Units 17:32 04:50 WBC 22.4 H (4.0-10.5) x10^3/uL RBC 3.73 L (4.1-5.4) x10^6/uL Hgb 11.9 L (12.0-16.0) g/dL Hct 33.8 L (35-47) % MCV 90.6 (78-100) fL MCH 31.9 (26-32) pg MCHC 35.2 (32-36) g/dL RDW 11.8 (11.5-14.0) % Plt Count 227 (150-450) x10^3/uL MPV 10.0 (7.5-11.0) fL Gran % 90.2 H (36.0-66.0) % Immature Gran % (Auto) 0.7 H (0.00-0.4) % Nucleat RBC Rel Count 0.0 (0.00-0.1) % Eos # (Auto) 0 (0-0.5) x10^3/uL Immature Gran # (Auto) 0.15 H (0.00-0.03) x10^3u/L Absolute Lymphs (auto) 0.94 L (1.0-4.6) x10^3/uL Absolute Monos (auto) 1.07 (0.0-1.3) x10^3/uL Absolute Nucleated RBC 0.00 (0.00-0.01) x10^3u/L Lymphocytes % 4.2 L (24.0-44.0) % Monocytes % 4.8 (0.0-12.0) % Eosinophils % 0.0 (0.00-5.0) % Basophils % 0.1 (0.0-0.4) % Absolute Granulocytes 20.16 H (1.4-6.9) x10^3/uL Basophils # 0.03 (0-0.4) x10^3/uL Hep Bs Antigen Negative (Negative) Slides for Path Review YES Multi-Disciplinary Progress Notes: Multi-Disciplinary Progress Notes 03/15/22 20:00 Respiratory Note by Aaron Duran RT ON STANDBY FOR C SECTION, BABY WAS PINK W/ GOOD CRY, AND TONE, HR 140, SAT 95% ON RA, RR 42, BS WERE CLEAR T/O. NO ISSUES AT THIS TIME, WARMED AND STIMULATED BABY AND NURSE TOOK HER TO SHOW MOM AND GRANDMA WAS HOLDING HER. Initialized on 03/15/22 20:00 - END OF NOTE Assessment/Plan (1) History of primary section Current Visit: Yes Status: Acute Code(s): Z98.891 - HISTORY OF UTERINE SCAR FROM PREVIOUS SURGERY (2) S/P primary low transverse Current Visit: Yes Status: Acute Code(s): Z98.891 - HISTORY OF UTERINE SCAR FROM PREVIOUS SURGERY
[2022-03-16] MEDS ORDERED: Adacel Vial IM ONE (13:00)
[2022-03-16] MEDS ORDERED: CEFAZOLIN 2 GM-D5W BAG** 2 GM/50 ML ML IV SCH (14:00)
[2022-03-16] MEDS: MOTRIN 400 MG PO PRN ×2 (15:59→22:27)
[2022-03-17] MEDS: MOTRIN 400 MG PO PRN ×2 (04:43→13:34)
[2022-03-17 05:21] LABS: Absolute Neutrophil Ct (ANC) 10.47 x10^3/uL (1.4-6.9); BASOPHIL % 0.3 % (0.0-0.4); Basophil (Absolute #) 0.05 x10^3/uL (0-0.4); Eosinophil % 0.7 % (0.00-5.0); Eosinophil (Absolute #) 0.11 x10^3/uL (0-0.5); Hematocrit 33.4 % (35-47); Hemoglobin 11.5 g/dL (12.0-16.0); IMMATURE GRAN # 0.15 x10^3u/L (0.00-0.03); IMMATURE GRAN % 0.9 % (0.00-0.4); Lymphocytes % 25.4 % (24.0-44.0); Mean Cell Volume 91.5 fL (78-100); Mean Corpuscular Hemoglobin 31.5 pg (26-32); Mean Corpuscular Hgb Concent. 34.4 g/dL (32-36); Mean Platelet Volume 10.3 fL (7.5-11.0); Monocyte (Absolute #) 1.24 x10^3/uL (0.0-1.3); Monocytes % 7.7 % (0.0-12.0); Platelet Count 264 x10^3/uL (150-450); Red Blood Count 3.65 x10^6/uL (4.1-5.4); Red Cell Distribution Width 12.5 % (11.5-14.0); White Blood Count 16.1 x10^3/uL (4.0-10.5)
--- NOTE | 2022-03-17 06:22 | PCM.NOTE ---
Date and Time: 03/17/22620 Subjective Assessment: pod 2 sp csection pt resting in bed and doing well able to ambulate and tolerate diet. vss afebrle abd; soft incision c/d/intact uterus; firm lochia; mild a/p sp csection pod 2 dc home today should fu in office in 2 wks OBJECTIVE DATA Vital Signs: Vital Signs - 24 hr Temp Pulse Resp BP Pulse Ox 03/17/22 04:20 97.5 F 68 20 132/87 03/16/22 20:00 97.6 F 90 18 119/64 03/16/22 14:00 97.7 F 97 H 18 124/70 97 03/16/22 08:00 99.2 F 80 18 113/67 97 Pain Assessment - Last Documented Pain Intensity [Anterior] 3 Pain Intensity 4 Pain Scale Used 0-10 Pain Scale Intake and Output: Intake & Output 03/14/22 03/15/22 03/16/22 03/17/22 11:59 11:59 11:59 11:59 Intake Total 6800 7329 1575 Output Total 900 3650 Balance 5900 3745 1575 Weight 82.1 kg 82.1 kg Lab Results: Lab Results-Last 24 Hours 03/14/22 03/17/22 Range/Units 17:32 04:41 WBC 16.1 H (4.0-10.5) x10^3/uL RBC 3.65 L (4.1-5.4) x10^6/uL Hgb 11.5 L (12.0-16.0) g/dL Hct 33.4 L (35-47) % MCV 91.5 (78-100) fL MCH 31.5 (26-32) pg MCHC 34.4 (32-36) g/dL RDW 12.5 (11.5-14.0) % Plt Count 264 (150-450) x10^3/uL MPV 10.3 (7.5-11.0) fL Gran % 65.0 (36.0-66.0) % Immature Gran % (Auto) 0.9 H (0.00-0.4) % Nucleat RBC Rel Count 0.0 (0.00-0.1) % Eos # (Auto) 0.11 (0-0.5) x10^3/uL Immature Gran # (Auto) 0.15 H (0.00-0.03) x10^3u/L Absolute Lymphs (auto) 4.10 (1.0-4.6) x10^3/uL Absolute Monos (auto) 1.24 (0.0-1.3) x10^3/uL Absolute Nucleated RBC 0.00 (0.00-0.01) x10^3u/L Lymphocytes % 25.4 (24.0-44.0) % Monocytes % 7.7 (0.0-12.0) % Eosinophils % 0.7 (0.00-5.0) % Basophils % 0.3 (0.0-0.4) % Absolute Granulocytes 10.47 H (1.4-6.9) x10^3/uL Basophils # 0.05 (0-0.4) x10^3/uL Hep Bs Antigen Negative (Negative) Assessment/Plan (1) History of primary section Current Visit: Yes Status: Acute Code(s): Z98.891 - HISTORY OF UTERINE SCAR FROM PREVIOUS SURGERY (2) S/P primary low transverse Current Visit: Yes Status: Acute Code(s): Z98.891 - HISTORY OF UTERINE SCAR FROM PREVIOUS SURGERY
--- NOTE | 2022-03-17 06:29 | PCM.DS ---
Discharge Summary Date of Admission: 03/15/22 08:00 Admitting Physician: BRENT EARL DO Consults: Consults on Case 03/15/22 18:12 Notify Physician OF ADMISSION 03/15/22 23:17 Navigation ONCE 03/16/22 01:20 Notify Anesthesia Provider PRN Primary Care Provider: MAYUR SOUZA Allergies Allergies bee venom protein (honey bee) Allergy (Verified 03/04/22 11:09) latex Allergy (Verified 03/04/22 11:09) Hospital Summary - Hospital Course Hospital Course: pt was admitted on mar 14 being 39 2/7 wks gestation and was admitted for cytotec induction. pt progressed to 2 cm on mar 15 and was started on pitocin where she ultimately progressed to 5cm and was noted having an arrest disorder after having had adequate uterine contractions with iupc in place for 6 hours with no cervical change pt also had epidural in place and was comfortable. pt subsequently proceeded having a primary csection and was done so witout complication delivering a live baby girl. during postop period did well with stable hgb level at 11. pt able to ambulate and tolerate diet and at this time time stable for discharge. all questions answered to her satisfaction. and was advised to fu in 2 wks for postop check. - Vitals & Intake/Output Vital Signs: Vital Signs Temperature 97.5 F 03/17/22 04:20 Pulse Rate 68 03/17/22 04:20 Respiratory Rate 20 03/17/22 04:20 Blood Pressure 132/87 03/17/22 04:20 O2 Sat by Pulse Oximetry 97 03/16/22 14:00 Intake & Output: Intake & Output 03/14/22 03/15/22 03/16/22 03/17/22 11:59 11:59 11:59 11:59 Intake Total 6800 7395 1575 Output Total 900 3650 Balance 5900 3745 1575 Weight 82.1 kg 82.1 kg - Lab Result Diagrams: 03/17/22 04:41 Lab Results-Last 24 Hrs: Lab Results-Last 24 Hours 03/14/22 03/17/22 Range/Units 17:32 04:41 WBC 16.1 H (4.0-10.5) x10^3/uL RBC 3.65 L (4.1-5.4) x10^6/uL Hgb 11.5 L (12.0-16.0) g/dL Hct 33.4 L (35-47) % MCV 91.5 (78-100) fL MCH 31.5 (26-32) pg MCHC 34.4 (32-36) g/dL RDW 12.5 (11.5-14.0) % Plt Count 264 (150-450) x10^3/uL MPV 10.3 (7.5-11.0) fL Gran % 65.0 (36.0-66.0) % Immature Gran % (Auto) 0.9 H (0.00-0.4) % Nucleat RBC Rel Count 0.0 (0.00-0.1) % Eos # (Auto) 0.11 (0-0.5) x10^3/uL Immature Gran # (Auto) 0.15 H (0.00-0.03) x10^3u/L Absolute Lymphs (auto) 4.10 (1.0-4.6) x10^3/uL Absolute Monos (auto) 1.24 (0.0-1.3) x10^3/uL Absolute Nucleated RBC 0.00 (0.00-0.01) x10^3u/L Lymphocytes % 25.4 (24.0-44.0) % Monocytes % 7.7 (0.0-12.0) % Eosinophils % 0.7 (0.00-5.0) % Basophils % 0.3 (0.0-0.4) % Absolute Granulocytes 10.47 H (1.4-6.9) x10^3/uL Basophils # 0.05 (0-0.4) x10^3/uL Hep Bs Antigen Negative (Negative) Micro Results-Entire Visit: Microbiology 03/15/22 08:45 Urine Culture - Preliminary Catherized NO GROWTH TO DATE - Procedures and Test Procedures and Tests throughout Hospitalization: Therapy Orders & Screens 03/15/22 19:30 Standby ROUTINE Comment: Diagnosis: Induction of Labor Final Diagnosis/Problem List - Final Discharge Diagnosis/Problem (1) History of primary section Current Visit: Yes Status: Acute Code(s): Z98.891 - HISTORY OF UTERINE SCAR FROM PREVIOUS SURGERY (2) S/P primary low transverse Current Visit: Yes Status: Acute Code(s): Z98.891 - HISTORY OF UTERINE SCAR FROM PREVIOUS SURGERY - Discharge Disposition: Home, Self-Care Condition: Stable Prescriptions: New Hydrocodone/Acetaminophen [Hydrocodone-Acetamin 5-325 mg] 1 tab PO Q6HPRN PRN #30 tablet MDD 4 PRN Reason: Pain No Action Pnv No.95/Ferrous Fum/Folic AC [ Caplet] 1 each PO DAILY Albuterol Sulfate [Albuterol Sulfate Hfa] 8.5 gm IH Q6H PRN 7 Days #1 inh PRN Reason: Cough Follow up with: MAYUR SOUZA NP [Primary Care Provider] - BRENT EARL DO [ACTIVE STAFF] - 2 weeks (should fu in office in 2 wks)
--- NOTE | 2022-03-17 08:00 | PCM.DCORD ---
- Discharge Disposition: Home, Self-Care Condition: Stable Prescriptions: New Hydrocodone/Acetaminophen [Hydrocodone-Acetamin 5-325 mg] 1 tab PO Q6HPRN PRN #30 tablet MDD 4 PRN Reason: Pain No Action Pnv No.95/Ferrous Fum/Folic AC [ Caplet] 1 each PO DAILY Albuterol Sulfate [Albuterol Sulfate Hfa] 8.5 gm IH Q6H PRN 7 Days #1 inh PRN Reason: Cough Follow up with: MAYUR SOUZA NP [Primary Care Provider] - BRENT EARL DO [ACTIVE STAFF] - 2 weeks (should fu in office in 2 wks)
[2022-03-17] MEDS: TYLENOL EXTRA STRENGTH 500 MG PO PRN (08:03)
[2022-03-17] MEDS: FERREX 150 PO SCH (10:52)
[2022-03-17] MEDS: NORCO 5/325 MG PO PRN ×2 (10:52→18:04)
[2022-03-17] MEDS: Docusate Sodium 100 MG PO SCH (10:54)
[2022-03-17 22:45] VITALS: BP 139/72; PULSE 108; O2SAT 98
== END 2022-03-17 21:20 | disposition home or self-care (01) | DRG 788 ==
LOC: OB 08:00 → OBSVTOIN 03-15 08:00
PROVIDERS: ADMIT Obstetrics & Gynecology; ATTEND Obstetrics & Gynecology
PROC: 10D00Z1 Extraction of Products of Conception, Low, Open Approach (ICD-10-PCS; principal; 2022-03-15)
DX: O62.1 Secondary uterine inertia (principal); Z3A.39 39 weeks gestation of pregnancy; Z37.0 Single live birth; Z20.828 Contact with and (suspected) exposure to other viral communicable diseases; Z86.16 Personal history of COVID-19
CPT/HCPCS: 36415; 59514; 64488; 76942; 80307; 85025; 86850; 86900; 86901; 87086; 87340; 90471; 90715; 94799; G0378; J0456; J0690; J1100; J1885; J2274; J2370; J2405; J2590; J3010; A9270-GY

== ENCOUNTER 2022-12-25 10:13 | Emergency (ER) | payer OTHER ==
[2022-12-25 11:05] VITALS: TEMP 97.3; O2SAT 100
[2022-12-25] MEDS ORDERED: Sodium Chloride 0.9% 1000 ML 1,000 ML IV STA (11:07)
--- NOTE | 2022-12-25 11:13 | ERPHSYRPT ---
- History of Present Illness Time Seen by Provider: 12/25/22 11:00 Historian: patient Exam Limitations: no limitations Patient Subjective Stated Complaint: Pt reports she had a 9 months ago at [facility]. Last week pt and spouse were having intercourse and pt had a lot of bleeding with abdominal pain. Pt has had abdominal pain since last week that feels like a twisting and stabbing. Triage Nursing Assessment: Pt alert and oriented x3. Easy, nonlabored respirations. Skin w/p/d. Ambulated to ED cot without difficulty. Abdomen tender with palpation worse left lower quad. Pt denies any urinary symptoms. Pt denies any active vaginal bleeding. Reports hx of ovarian cysts. Physician History: 22 years old female presenting to the emergency room complaining of lower abdominal pain that she has been having for 1 week. The patient had a 9 months ago. A week ago she had a sexual intercourse with her , ended up with heavy vaginal bleeding and lower abdominal pain. Since then she has been having this pain which is sharp can be severe at 8 out of 10. The patient did not take any pain medications. She denies any nausea or vomiting. Normal bowel movement, last 1 was this morning. She denies any urinary symptoms. She is on control she does not recall when was her last menstrual period. She has no past medical history does not take any medications, she is allergic to bees and wasps. Allergies/Adverse Reactions: bee venom protein (honey bee) Allergy (Verified 12/25/22 11:03) latex Allergy (Verified 12/25/22 11:03) Hx Tetanus, Diphtheria Vaccination/Date Given: Yes Hx Influenza Vaccination/Date Given: Yes Hx Pneumococcal Vaccination/Date Given: No Travel Risk - International Travel Have you traveled outside of the country in past 3 weeks: No - Coronavirus Screening Are you exhibiting any of the following symptoms?: No Close contact with a COVID-19 positive Pt in past 14-21 Days: No - Vaccine Status Have you recieved a Covid-19 vaccination: No - Review of Systems Constitutional: No Fever, No Chills Eyes: No Symptoms Ears, Nose, & Throat: No Symptoms Respiratory: No Cough, No Dyspnea Cardiac: No Chest Pain, No Edema, No Syncope Abdominal/Gastrointestinal: Abdominal Pain, No Nausea, No Vomiting, No Diarrhea Genitourinary Symptoms: No Dysuria Musculoskeletal: No Back Pain, No Neck Pain Skin: No Rash Neurological: No Dizziness, No Focal Weakness, No Sensory Changes Psychological: No Symptoms Endocrine: No Symptoms All Other Systems: Reviewed and Negative - Past Medical History Pertinent Past Medical History: Yes Neurological History: No Pertinent History ENT History: No Pertinent History Cardiac History: No Pertinent History Respiratory History: No Pertinent History Endocrine Medical History: No Pertinent History Musculoskeletal History: No Pertinent History GI Medical History: No Pertinent History History: No Pertinent History Psycho-Social History: Anxiety, Attention Deficit Disorder, Depression Female Reproductive Disorders: Other Other Medical History: ovarian cysts - Past Surgical History Past Surgical History: Yes (tonsilectomy) Neuro Surgical History: No Pertinent History Cardiac: No Pertinent History Respiratory: No Pertinent History Gastrointestinal: No Pertinent History Genitourinary: No Pertinent History Musculoskeletal: No Pertinent History Female Surgical History: Section - Social History Smoking Status: Never smoker Exposure to second hand smoke: No Drug Use: none Patient Lives Alone: No Significant Family History: no pertinent family hx - Female History Hx Last Menstrual Period: approx 9 months ago and no menstrual cycle since. Hx Now: No - Nursing Vital Signs Nursing Vital Signs: Initial Vital Signs Temperature 97.3 F 12/25/22 10:23 Pulse Rate 88 12/25/22 10:23 Respiratory Rate 18 12/25/22 10:23 Blood Pressure 144/82 12/25/22 10:23 O2 Sat by Pulse Oximetry 100 12/25/22 10:23 Pain Scale Pain Intensity 2 - Physical Exam General Appearance: no apparent distress, alert Eye Exam: PERRL/EOMI, eyes nml inspection Ears, Nose, Throat Exam: normal ENT inspection, pharynx normal, moist mucous membranes Neck Exam: normal inspection, non-tender, supple, full range of motion Respiratory Exam: normal breath sounds, lungs clear, No respiratory distress Cardiovascular Exam: regular rate/rhythm, normal heart sounds Gastrointestinal/Abdomen Exam: soft, tenderness, other (The patient has tenderness in the lower abdomen especially in the left lower quadrant and suprapubic area. No rebound no guarding or rigidity.), No distention, No mass, No guarding, No pulsatile mass, No rebound Back Exam: normal inspection, normal range of motion, No CVA tenderness, No vertebral tenderness Extremity Exam: normal inspection, normal range of motion, pelvis stable Neurologic Exam: alert, oriented x 3, cooperative, normal mood/affect, nml cerebellar function, sensation nml, No motor deficits Skin Exam: normal color, warm, dry SpO2: 100 - Course Nursing assessment & vital signs reviewed: Yes Ordered Tests: Active Orders 24 hr Category Date Time Status IV Insertion STAT Care 12/25/22 11:07 Active NPO (ED) STAT Care 12/25/22 11:07 Active ABDOMEN AND PELVIS W/0 CONTRAS [CT] Stat Exams 12/25/22 11:08 Completed CBC W DIFF Stat Lab 12/25/22 11:30 Completed CMP Stat Lab 12/25/22 11:30 Completed CULTURE,URINE Stat Lab 12/25/22 11:00 Received HCG QUALITATIVE, SERUM Stat Lab 12/25/22 11:30 Completed LIPASE Stat Lab 12/25/22 11:30 Completed UA W/RFX UR CULTURE Stat Lab 12/25/22 11:00 Completed Medication Summary Discontinued Medications Generic Name Dose Route Start Last Admin Trade Name Freq PRN Reason Stop Dose Admin Sodium Chloride 1,000 mls @ 999 mls/hr 12/25/22 11:07 12/25/22 11:26 Sodium Chloride 0.9% 1000 Ml IV 12/25/22 12:07 999 mls/hr .Q1H1M STA Administration Sodium Chloride Confirm 12/25/22 11:23 Sodium Chloride 0.9% 1000 Ml Administered 12/25/22 11:24 Dose 1,000 mls @ ud .ROUTE .STK-MED ONE Ketorolac Tromethamine 30 mg 12/25/22 12:22 12/25/22 12:28 Ketorolac Tromethamine 30 Mg/Ml Inj IV 12/25/22 12:23 30 mg STAT ONE Administration Ketorolac Tromethamine Confirm 12/25/22 12:26 Ketorolac Tromethamine 30 Mg/Ml Inj Administered 12/25/22 12:27 Dose 30 mg .ROUTE .STK-MED ONE Lab/Rad Data: Laboratory Result Diagrams 12/25/22 11:30 12/25/22 11:30 Laboratory Results 12/25/22 12/25/22 12/25/22 Range/Units 11:30 11:30 11:30 WBC 5.7 (4.0-10.5) x10^3/uL RBC 4.40 (4.1-5.4) x10^6/uL Hgb 13.4 (12.0-16.0) g/dL Hct 39.5 (35-47) % MCV 89.8 (78-100) fL MCH 30.5 (26-32) pg MCHC 33.9 (32-36) g/dL RDW 11.9 (11.5-14.0) % Plt Count 275 (150-450) x10^3/uL MPV 9.7 (7.5-11.0) fL Gran % 56.4 (36.0-66.0) % Immature Gran % (Auto) 0.2 (0.00-0.4) % Nucleat RBC Rel Count 0.0 (0.00-0.1) % Eos # (Auto) 0.12 (0-0.5) x10^3/uL Immature Gran # (Auto) 0.01 (0.00-0.03) x10^3u/L Absolute Lymphs (auto) 1.77 (1.0-4.6) x10^3/uL Absolute Monos (auto) 0.55 (0.0-1.3) x10^3/uL Absolute Nucleated RBC 0.00 (0.00-0.01) x10^3u/L Lymphocytes % 31.2 (24.0-44.0) % Monocytes % 9.7 (0.0-12.0) % Eosinophils % 2.1 (0.00-5.0) % Basophils % 0.4 (0.0-0.4) % Absolute Granulocytes 3.21 (1.4-6.9) x10^3/uL Basophils # 0.02 (0-0.4) x10^3/uL Sodium 138 (137-145) mmol/L Potassium 4.1 (3.5-5.1) mmol/L Chloride 104 (98-107) mmol/L Carbon Dioxide 22 (22-30) mmol/L Anion Gap 16.2 H (5-15) MEQ/L BUN 11 (7-17) mg/dL Creatinine 0.48 L (0.52-1.04) mg/dL Estimated GFR 137.3 ML/MIN Glucose 84 (74-106) mg/dL Calcium 9.2 (8.4-10.2) mg/dL Total Bilirubin 0.30 (0.2-1.3) mg/dL AST 28 (14-36) U/L ALT 19 (0-35) U/L Alkaline Phosphatase 72 (38-126) U/L Serum Total Protein 7.4 (6.3-8.2) g/dL Albumin 4.3 (3.5-5.0) g/dL Lipase 56 (23-300) U/L Serum HCG, Qual NEGATIVE (NEGATIVE) Urine Color (Yellow) Urine Appearance (Clear) Urine pH (4.6-8.0) Ur Specific Marshall (1.005-1.030) Urine Protein (Negative) Urine Glucose (UA) (Negative) mg/dL Urine Ketones (Negative) Urine Blood (Negative) Urine Nitrite (Negative) Urine Bilirubin (Negative) Urine Urobilinogen (0.2) mg/dL Ur Leukocyte Esterase (Negative) U Hyaline Cast (Auto) (0-2) /LPF Urine Microscopic RBC (0-5) /HPF Urine Microscopic WBC (0-5) /HPF Ur Epithelial Cells (None Seen) /HPF Urine Bacteria (None Seen) /HPF Urine Culture Reflexed (NO) 12/25/22 Range/Units 11:00 WBC (4.0-10.5) x10^3/uL RBC (4.1-5.4) x10^6/uL Hgb (12.0-16.0) g/dL Hct (35-47) % MCV (78-100) fL MCH (26-32) pg MCHC (32-36) g/dL RDW (11.5-14.0) % Plt Count (150-450) x10^3/uL MPV (7.5-11.0) fL Gran % (36.0-66.0) % Immature Gran % (Auto) (0.00-0.4) % Nucleat RBC Rel Count (0.00-0.1) % Eos # (Auto) (0-0.5) x10^3/uL Immature Gran # (Auto) (0.00-0.03) x10^3u/L Absolute Lymphs (auto) (1.0-4.6) x10^3/uL Absolute Monos (auto) (0.0-1.3) x10^3/uL Absolute Nucleated RBC (0.00-0.01) x10^3u/L Lymphocytes % (24.0-44.0) % Monocytes % (0.0-12.0) % Eosinophils % (0.00-5.0) % Basophils % (0.0-0.4) % Absolute Granulocytes (1.4-6.9) x10^3/uL Basophils # (0-0.4) x10^3/uL Sodium (137-145) mmol/L Potassium (3.5-5.1) mmol/L Chloride (98-107) mmol/L Carbon Dioxide (22-30) mmol/L Anion Gap (5-15) MEQ/L BUN (7-17) mg/dL Creatinine (0.52-1.04) mg/dL Estimated GFR ML/MIN Glucose (74-106) mg/dL Calcium (8.4-10.2) mg/dL Total Bilirubin (0.2-1.3) mg/dL AST (14-36) U/L ALT (0-35) U/L Alkaline Phosphatase (38-126) U/L Serum Total Protein (6.3-8.2) g/dL Albumin (3.5-5.0) g/dL Lipase (23-300) U/L Serum HCG, Qual (NEGATIVE) Urine Color Yellow (Yellow) Urine Appearance Clear (Clear) Urine pH 7.5 (4.6-8.0) Ur Specific Marshall 1.020 (1.005-1.030) Urine Protein Negative (Negative) Urine Glucose (UA) Negative (Negative) mg/dL Urine Ketones Trace A (Negative) Urine Blood Negative (Negative) Urine Nitrite Negative (Negative) Urine Bilirubin Negative (Negative) Urine Urobilinogen 0.2 (0.2) mg/dL Ur Leukocyte Esterase Negative (Negative) U Hyaline Cast (Auto) 3-5 A (0-2) /LPF Urine Microscopic RBC 0-2 (0-5) /HPF Urine Microscopic WBC 0-2 (0-5) /HPF Ur Epithelial Cells Many A (None Seen) /HPF Urine Bacteria Many A (None Seen) /HPF Urine Culture Reflexed YES (NO) - Progress Progress: unchanged (The patient's work-up is essentially negative, her test is negative, she was given Toradol 30 mg IV for her abdominal pain. CT scan still pending.) Progress Note: 12/25/22 14:26 The patient is feeling better after receiving the Toradol shot and 1 L of 0.9 saline. Her work-up is essentially negative, normal CBC, CMP and UA. Her CT scan of the abdomen pelvis revealed multiple mesenteric lymph nodes suggesting some mesenteric adenitis but no other acute abnormalities. The patient denies any fever or chills, no sore throat and her white count is normal. At present she is feeling better, her pain is completely resolved and she is feeling hungry, eating some crackers. The patient be discharged home accompanied by her mother. She can alternate Tylenol and ibuprofen as needed for the pain. Follow-up with your family physician in 2 to 3 days. Follow-up as needed for any worsening symptoms. Medical Desision Making - Discussion of managment Reviewed:: Test results Agreed on:: need for follow-up Will see patient: In office - Diagnostic Testing Diagnostic test were ordered, analyzed, and reviewed by me: Yes Radiological Interpretation: Teleradiologist Report - Risk of complications Minimal Risk: Minimal risk of morbidity - Departure Departure Disposition: Home Clinical Impression: Abdominal pain Clinical Impression: (Ruled Out): Abdominal pain affecting , UTI in Condition: Stable Critical Care Time: No Referrals: MAYUR SOUZA NP [Primary Care Provider] - Follow up/PCP as directed Instructions: Severe Abdominal Pain, Adult (DC) Prescriptions: Ibuprofen 400 mg PO Q6HPRN PRN #30 tablet PRN Reason: Pain
[2022-12-25] MEDS ORDERED: Sodium Chloride 0.9% 1000 ML 1,000 ML ONE (11:23)
[2022-12-25 11:48] LABS: Absolute Neutrophil Ct (ANC) 3.21 x10^3/uL (1.4-6.9); BASOPHIL % 0.4 % (0.0-0.4); Basophil (Absolute #) 0.02 x10^3/uL (0-0.4); Eosinophil % 2.1 % (0.00-5.0); Eosinophil (Absolute #) 0.12 x10^3/uL (0-0.5); Hematocrit 39.5 % (35-47); Hemoglobin 13.4 g/dL (12.0-16.0); IMMATURE GRAN # 0.01 x10^3u/L (0.00-0.03); IMMATURE GRAN % 0.2 % (0.00-0.4); Lymphocyte (Absolute #) 1.77 x10^3/uL (1.0-4.6); Lymphocytes % 31.2 % (24.0-44.0); Mean Cell Volume 89.8 fL (78-100); Mean Corpuscular Hemoglobin 30.5 pg (26-32); Mean Corpuscular Hgb Concent. 33.9 g/dL (32-36); Mean Platelet Volume 9.7 fL (7.5-11.0); Monocyte (Absolute #) 0.55 x10^3/uL (0.0-1.3); Monocytes % 9.7 % (0.0-12.0); Neutrophil % 56.4 % (36.0-66.0); Platelet Count 275 x10^3/uL (150-450); Red Cell Distribution Width 11.9 % (11.5-14.0); White Blood Count 5.7 x10^3/uL (4.0-10.5)
[2022-12-25 12:05] LABS: ALBUMIN 4.3 g/dL (3.5-5.0); ANION GAP 16.2 MEQ/L (5-15); BILIRUBIN,TOTAL 0.3 mg/dL (0.2-1.3); Calcium 9.2 mg/dL (8.4-10.2); Creatinine 1 0.48 mg/dL (0.52-1.04); EST GLOMERULAR FILTRATION RATE 137.3 ML/MIN; Potassium 4.1 mmol/L (3.5-5.1); Total Protein 7.4 g/dL (6.3-8.2)
[2022-12-25 12:08] VITALS: BP 118/75
[2022-12-25 12:14] LABS: HCG SERUM TEST NEGATIVE (NEGATIVE)
[2022-12-25] MEDS ORDERED: TORAdol 30 mg Injection IV ONE (12:22)
[2022-12-25] MEDS ORDERED: TORAdol 30 mg Injection ONE (12:26)
[2022-12-25 12:43] LABS: Appearance Clear (Clear); Bacteria Many /HPF (None Seen); Bilirubin Negative (Negative); Blood Negative (Negative); Epithelial Cells Many /HPF (None Seen); Glucose, Urine Negative (Negative); Ketones Trace (Negative); Leukocyte Esterase Negative (Negative); Nitrite Negative (Negative); Ph 7.5 (4.6-8.0); Protein,Urine Dip Negative (Negative); RBC 0-2 /HPF (0-5); Urobilinogen 0.2 mg/dL (0.2); WBC 0-2 /HPF (0-5)
[2022-12-25 12:44] LABS: ADD URINE CULTURE? YES (NO)
--- NOTE | 2022-12-25 13:43 | XRAY ---
CLINICAL HISTORY:abdominal pain COMPARISON:None TECHNIQUE:A contiguous, multislice, nonenhanced CT scan of the abdomen and pelvis was performed in the axial plane with multiplanar reconstructions. FINDINGS: Average-sized liver measuring about 16 cm in craniocaudal axis showing homogeneous attenuation with no obvious focal mass lesion within the limitations of non-contrast study. No intrahepatic biliary dilatation. Normal-sized portal vein and CBD. Gallbladder shows no definite calculi inside. Pancreas and spleen appear unremarkable. Small splenule was noted measuring about 7.9 mm. No adrenal mass. Both kidneys appear normal in size, show normal contour and attenuation. No calculus, mass, or hydronephrosis in either kidney. No ascites. No para-aortic lymphadenopathy. Imaged bowel structures appear unremarkable. No bowel dilatation. The appendix could not be visualized however no fat stranding or collection noted in the right leg. Multiple subcentimeter mesenteric lymph nodes seen, the largest measuring about 7 mm. An adequately filled urinary bladder, appear free from intraluminal stones, mass or diverticular outpouching. Normal-sized uterus. No adnexal mass. No acute osseous abnormality or suspicious bony lesions. Visualized sections of lower chest shows no focal mass or consolidation. IMPRESSION: 1. Limited organ parenchymal evaluation within the limitations of non-contrast study. 2. Multiple mesenteric lymph nodes suggest mesenteric adenitis. Needs clinical and lab correlation. 3. Rest of the visualized abdominopelvic structures appear unremarkable. Electronically Signed by: Radhika Bullock MD. (12/25/2022 12:42:23 SMELLER)
[2022-12-25 14:25] VITALS: RESP 16
[2022-12-25 14:39] VITALS: PULSE 70
== END 2022-12-25 14:47 | disposition home or self-care (01) ==
LOC: ED 10:13
DX: R10.30 Lower abdominal pain, unspecified (principal); Z28.310 Unvaccinated for COVID-19
CPT/HCPCS: 36000; 36415; 74176; 80053; 81001; 83690; 84703; 85025; 87086; 96374; 99284; J1885

== ENCOUNTER 2024-04-16 09:40 | Emergency (ER) | payer MEDICAID | END 2024-04-16 10:32 | disposition left against medical advice (07) | LOC: ED 09:40 | DX: Z53.21 Procedure and treatment not carried out due to patient leaving prior to being seen by health care provider (principal) ==